=== PATIENT | female | born 1990 | race African-American/Black ===

== ENCOUNTER 2019-03-02 10:50 | Inpatient (IN) ==
[2019-03-02] MEDS ORDERED: ASPIRIN 325 MG TABLET PO STA (11:44)
[2019-03-02 12:36] LABS: Calcium 8.8 MG/DL (8.5-10.1); Osmolality,Calculated 277.3 MOS/KG (273-304)
[2019-03-02] MEDS ORDERED: ENOXAPARIN 80 MG/0.8 ML SYRINGE SUBCUT STA (13:19)
[2019-03-02 13:32] LABS: PT Patient Result 11.1 SECS (9.6-12.2); Partial Thromboplastin Time 25.2 SECS (20.8-36.0)
[2019-03-02] MEDS ORDERED: ALBUTEROL 2.5 MG/3 ML NEB RESP TX PRN (13:55)
[2019-03-02] MEDS ORDERED: ACETAMINOPHEN 325 MG TABLET PO PRN (13:55)
[2019-03-02] MEDS ORDERED: ZALEPLON 5 MG CAPSULE PO PRN (13:55)
[2019-03-02] MEDS ORDERED: ONDANSETRON 4 MG/2 ML VIAL IV PRN (13:55)
[2019-03-02] MEDS ORDERED: DOCUSATE SODIUM 100 MG CAPSULE PO PRN (13:55)
[2019-03-02 13:58] LABS: Basophils % 0.6 % (0.0-0.8); Eosinophils # 0.1 10*3/uL (0.0-0.87); Eosinophils % 1.1 % (0.00-10.9); Hematocrit 47.5 VOL% (35.7-47.0); Hemoglobin 15.3 GM/DL (12.0-16.0); Immature Granulocytes % 0.2 %; Immature Granulocytes Absolute 0.01 #; Lymphocytes # 2.3 10*3/uL (1.4-4.0); Lymphocytes % 34.9 % (21.3-54.2); Mean Corpuscular HGB Conc 32.2 GM/DL (32-36); Mean Corpuscular Volume 86.1 FL (87-102); Mean Platelet Volume 10.3 FL (9.6-12.0); Monocytes % 11.9 % (1.7-12.7); Neutrophils % 51.3 % (38.7-73.9); Platelet Count 258 T/CUMM (130-400); Red Blood Count 5.52 MC/CUMM (3.8-5.5); Red Cell Distribution Width 13.1 % (9.3-17.3); White Blood Count 6.5 T/CUMM (4-12)
[2019-03-02 14:12] LABS: Apearance,Urine CLEAR (Clear); Bilirubin,Urine Negative (Negative); Blood, Urine Negative (Negative); Glucose,Urine (UA) Negative (Negative); Ketones,Urine 5 mg/dL (Negative); Mucus,Urine Occasional /LPF (Occasional); Nitrite,Urine Negative (Negative); Protein,Urine Negative; RBC,Urine 2 /HPF (0-4); Squamous Epithelial Cell,Urine Occasional /HPF (0-10); Urine Color Yellow (Yellow); Urine Specific Gravity > 1.060 (1.001-1.035); Urine Urobilinogen < 2.0 EU/DL (0.2-1.0)
[2019-03-02] MEDS: PANTOPRAZOLE 40 MG TABLET PO SCH (15:04)
[2019-03-02] MEDS: SODIUM CHLORIDE 0.9% 1,000 ML IV SCH ×2 (15:04→21:54)
[2019-03-02] MEDS ORDERED: LORazepam 2 MG/1 ML VIAL IV PRN (15:30)
[2019-03-02] MEDS ORDERED: METOPROLOL TARTRATE 5 MG/5 ML VIAL IV PRN (15:30)
[2019-03-02] MEDS ORDERED: INFLUENZA VIRUS VACCINE 0.5 ML SYRINGE IM ONE (15:33)
[2019-03-02] MEDS: MORPHINE 4 MG/1 ML VIAL IV PRN ×2 (17:28→22:24)
[2019-03-02] MEDS ORDERED: APIXABAN 5 MG TABLET PO SCH (21:00)
[2019-03-03] MEDS ORDERED: diphenhydrAMINE CAP 50 MG CAPSULE PO PRN ×2 (01:06→09:59)
[2019-03-03] MEDS ORDERED: ENOXAPARIN 80 MG/0.8 ML SYRINGE SUBCUT SCH (01:30)
[2019-03-03 04:27] LABS: Basophils % 0.6 % (0.0-0.8); Eosinophils # 0.1 10*3/uL (0.0-0.87); Hematocrit 39.7 VOL% (35.7-47.0); Hemoglobin 12.6 GM/DL (12.0-16.0); Immature Granulocytes % 0.2 %; Immature Granulocytes Absolute 0.01 #; Lymphocytes # 2.6 10*3/uL (1.4-4.0); Lymphocytes % 47.6 % (21.3-54.2); Mean Corpuscular HGB Conc 31.7 GM/DL (32-36); Mean Platelet Volume 10.6 FL (9.6-12.0); Monocytes % 10.7 % (1.7-12.7); Neutrophils % 38.9 % (38.7-73.9); Platelet Count 218 T/CUMM (130-400); Red Blood Count 4.51 MC/CUMM (3.8-5.5); Red Cell Distribution Width 13.2 % (9.3-17.3); White Blood Count 5.4 T/CUMM (4-12)
[2019-03-03 04:59] LABS: Calcium 7.7 MG/DL (8.5-10.1); Osmolality,Calculated 276.4 MOS/KG (273-304)
[2019-03-03] MEDS: SODIUM CHLORIDE 0.9% 1,000 ML IV SCH ×4 (05:51→21:26)
[2019-03-03] MEDS ORDERED: SODIUM CHLORIDE 0.9% 1,000 ML IV SCH ×3 (07:30→09:30)
[2019-03-03] MEDS ORDERED: ALTEPLASE 6 MG in SODIUM CHLORIDE 0.9% 120 ML IV SCH (07:30)
[2019-03-03] MEDS ORDERED: LIDOCAINE 1% 20 ML VIAL ONE (08:16)
[2019-03-03] MEDS ORDERED: HYDROmorphone 2 MG/1 ML VIAL ONE (08:16)
[2019-03-03] MEDS ORDERED: MIDAZOLAM 2 MG/2 ML VIAL ONE (08:16)
[2019-03-03] MEDS: PANTOPRAZOLE 40 MG TABLET PO SCH (09:53)
[2019-03-03] MEDS: MORPHINE 4 MG/1 ML VIAL IV PRN ×2 (12:18→17:37)
[2019-03-03] MEDS: APIXABAN 5 MG TABLET PO SCH (20:32)
[2019-03-04] MEDS: SODIUM CHLORIDE 0.9% 1,000 ML IV SCH ×2 (03:03→11:12)
[2019-03-04 04:31] LABS: Basophils % 0.7 % (0.0-0.8); Eosinophils # 0.2 10*3/uL (0.0-0.87); Eosinophils % 3.3 % (0.00-10.9); Hematocrit 39.2 VOL% (35.7-47.0); Hemoglobin 12.6 GM/DL (12.0-16.0); Immature Granulocytes % 0.2 %; Immature Granulocytes Absolute 0.01 #; Lymphocytes # 1.6 10*3/uL (1.4-4.0); Lymphocytes % 29.4 % (21.3-54.2); Mean Corpuscular HGB Conc 32.1 GM/DL (32-36); Mean Corpuscular Volume 86.3 FL (87-102); Mean Platelet Volume 10.7 FL (9.6-12.0); Monocytes % 11.6 % (1.7-12.7); Neutrophils % 54.8 % (38.7-73.9); Platelet Count 196 T/CUMM (130-400); Red Blood Count 4.54 MC/CUMM (3.8-5.5); Red Cell Distribution Width 12.8 % (9.3-17.3); White Blood Count 5.5 T/CUMM (4-12)
[2019-03-04 04:45] LABS: Calcium 8.1 MG/DL (8.5-10.1); Osmolality,Calculated 276.4 MOS/KG (273-304)
[2019-03-04] MEDS ORDERED: LORazepam 1 MG TABLET PO PRN (09:04)
[2019-03-04] MEDS: APIXABAN 5 MG TABLET PO SCH ×2 (09:24→21:06)
[2019-03-04] MEDS: PANTOPRAZOLE 40 MG TABLET PO SCH (09:24)
[2019-03-04] MEDS ORDERED: MAGNESIUM SULF RIDER 2 GM in PREMIX 1 EACH IV PRN (10:03)
[2019-03-04] MEDS ORDERED: MAGNESIUM SULF RIDER 4 GM in PREMIX 1 EACH IV PRN (10:03)
[2019-03-04 11:01] LABS: Protein C Activity Plasma 97 % (70 - 150)
[2019-03-05 04:21] LABS: Basophils % 0.6 % (0.0-0.8); Eosinophils # 0.2 10*3/uL (0.0-0.87); Eosinophils % 4.1 % (0.00-10.9); Hemoglobin 12.1 GM/DL (12.0-16.0); Immature Granulocytes % 0.2 %; Immature Granulocytes Absolute 0.01 #; Lymphocytes # 1.8 10*3/uL (1.4-4.0); Lymphocytes % 37.3 % (21.3-54.2); Mean Corpuscular HGB Conc 31.8 GM/DL (32-36); Mean Corpuscular Volume 86.4 FL (87-102); Mean Platelet Volume 10.6 FL (9.6-12.0); Monocytes % 13.7 % (1.7-12.7); Neutrophils % 44.1 % (38.7-73.9); Platelet Count 206 T/CUMM (130-400); Red Cell Distribution Width 12.8 % (9.3-17.3); White Blood Count 4.8 T/CUMM (4-12)
[2019-03-05 04:46] LABS: Calcium 8.6 MG/DL (8.5-10.1)
[2019-03-05] MEDS: APIXABAN 5 MG TABLET PO SCH (09:01)
[2019-03-05] MEDS: PANTOPRAZOLE 40 MG TABLET PO SCH (09:02)
[2019-03-05 11:20] VITALS: BP 124/93
[2019-03-05 12:51] LABS: Protein S Activity Plasma 25 % (50 - 160)
== END 2019-03-05 12:47 | disposition home or self-care (01) | DRG 176 ==
LOC: N.ED 10:50 → N.EDINP 13:55 → SUATTDRO 13:55 → N.ICU 15:06 → N.TELES 03-04 14:01
PROVIDERS: ADMIT Family Medicine; ATTEND Internal Medicine